=== PATIENT | female | born 1945 | race Caucasian/White ===

== ENCOUNTER → 2019-01-22 | Outpatient (CLI) | payer MEDICARE, BC ==
[~2019-01-22] MED LIST: ALEVE PO; COUMADIN 5MG5 MG/TAB PO; COUMADIN 77.5 MG/TAB PO; FOSAMAX 70MG TA70 MG PO; GLUCOSAMINE PO; LEXAPRO 10MG10 MG PO; LUMIGAN 2.5 ML2.5 M1 OP; Lovenox SQ; MULTI VITAMINS1 TAB; NORCO 325 MG-51 TAB PO; NORCO 325 MG-7.1 TAB PO; PERCOCET 325 MG1 TA2 PO; PREDNISONE10 MG PO; PRILOTC PO; PROMETHAZINE V473 M2 PO; SYNTHROID0.05 MG/TA PO; SYNTHROID0.075 MG/T PO; SYNTHROID0.1 MG/TAB PO; VALIUM 5MG T5 MG/TAB PO; VITAMIN C500 MG PO; VITAMIN D 1001000 IU PO
== END ==
LOC: MC.RAD 07:42
DX: Z12.31 Encounter for screening mammogram for malignant neoplasm of breast (principal)

== ENCOUNTER 2019-02-10 07:12 | Inpatient (IN) | payer MEDICARE, BC ==
[~2019-02-10] VITALS: Ht 165.1 cm; Wt 58.4 kg
[2019-02-10 08:44] LABS: BASO # 0.1 (0.0-0.2); BASO % 0.6 % (0.0-2.0); EOS # 0.2 (0.0-0.7); EOS % 1.5 % (0-4.0); GRAN # 7.7 (1.4-6.5); GRAN % 78.2 % (42.2-75.2); HEMATOCRIT 37.1 % (37.0-47.0); HEMOGLOBIN 12.2 g/dl (12.5-16.0); LYMPH # 1.2 (1.2-3.4); LYMPH % 11.8 % (20.0-51.0); MEAN CELL VOLUME 99 fl (80.0-100.0); MEAN CORPUSCULAR HEMOGLOBIN 32 pg (27.0-31.0); MEAN CORPUSCULAR HGB CONC 33 g/dl (33.0-37.0); MONO # 0.7 (0.1-0.6); MONO % 7.4 % (1.7-9.3); PLATELET COUNT 295 K/mm3 (130-400); RED BLOOD COUNT 3.76 M/mm3 (4.10-5.30); REDCELL DISTRIBUTION WIDTH-CV 13.4 % (11.5-14.5)
[2019-02-10 08:55] LABS: PROTHROMBIN TIME 11.2 SECONDS (9.7-12.8)
[2019-02-10 08:56] LABS: COLLECTION METHOD CLEAN CATCH
[2019-02-10 08:57] LABS: PARTIAL THROMBOPLASTIN TIME 18.2 SECONDS (26.0-37.0)
[2019-02-10 09:09] LABS: PH 8 (5-8); SQUAMOUS EPITHELIAL 0-2 /hpf; URINE APPEARANCE Clear; URINE BACTERIA None Seen /hpf; URINE BILIRUBIN Negative (NEGATIVE); URINE BLOOD Negative (NEGATIVE); URINE COLOR Yellow; URINE GLUCOSE Negative (NEGATIVE); URINE KETONE Negative (NEGATIVE); URINE LEUKOCYTE ESTERASE Negative (NEGATIVE); URINE NITRATE Negative (NEGATIVE); URINE PROTEIN(semi-quant) Negative (NEGATIVE); URINE RBC 0-2 /hpf; URINE UROBILINOGEN Negative (NEGATIVE)
[2019-02-10 09:10] LABS: ALBUMIN 4.2 gm/dL (3.5-5.0); BILIRUBIN,TOTAL 0.9 mg/dL (0.0-1.0); C-REACTIVE PROTEIN 5.9 mg/dL (0.0-0.9); CALCIUM 9.3 mg/dL (8.4-10.2); CREATININE, serum 0.77 (0.52-1.25); POTASSIUM 4.1 mmol/L (3.4-5.0); TOTAL PROTEIN 7.9 gm/dL (6.4-8.2)
[2019-02-10] MEDS ORDERED: VITAMIN D 1001000 IU PO (11:46)
[2019-02-10 11:50] VITALS: BP 106/43; PULSE 65; TEMP 98.3
[2019-02-10 11:54] VITALS: BP 106/43; PULSE 60; TEMP 98.3
[2019-02-10 16:21] VITALS: BP 131/56; PULSE 75; TEMP 99.4
[2019-02-10 20:36] VITALS: BP 104/50; PULSE 71; TEMP 98.3
[2019-02-10 23:08] VITALS: BP 105/58; PULSE 77; TEMP 99.3
[2019-02-11 03:34] VITALS: BP 109/50; PULSE 64; TEMP 98.9
[2019-02-11 07:57] LABS: ALBUMIN 3.7 gm/dL (3.5-5.0); BILIRUBIN,TOTAL 0.8 mg/dL (0.0-1.0); CALCIUM 8.7 mg/dL (8.4-10.2); CREATININE, serum 0.75 (0.52-1.25); POTASSIUM 3.9 mmol/L (3.4-5.0); TOTAL PROTEIN 6.9 gm/dL (6.4-8.2)
[2019-02-11 08:00] VITALS: BP 119/51; PULSE 66; TEMP 97.4
[2019-02-11 08:00] LABS: BASO % 0.5 % (0.0-2.0); EOS # 0.2 (0.0-0.7); EOS % 2.1 % (0-4.0); GRAN # 5.8 (1.4-6.5); GRAN % 71.8 % (42.2-75.2); HEMOGLOBIN 11.1 g/dl (12.5-16.0); LYMPH # 1.3 (1.2-3.4); LYMPH % 16.5 % (20.0-51.0); MEAN CELL VOLUME 99 fl (80.0-100.0); MEAN CORPUSCULAR HEMOGLOBIN 33 pg (27.0-31.0); MEAN CORPUSCULAR HGB CONC 33 g/dl (33.0-37.0); MEAN PLATELET VOLUME 10.2 fl (7.4-10.4); MONO # 0.7 (0.1-0.6); MONO % 8.9 % (1.7-9.3); PLATELET COUNT 293 K/mm3 (130-400); RED BLOOD COUNT 3.42 M/mm3 (4.10-5.30); REDCELL DISTRIBUTION WIDTH-CV 13.4 % (11.5-14.5)
[2019-02-11 08:01] LABS: HEMATOCRIT 33.7 % (37.0-47.0)
[2019-02-11 12:00] VITALS: BP 109/52; PULSE 62; TEMP 98.9
[2019-02-11 16:00] VITALS: BP 116/37; PULSE 70; TEMP 98.7
[2019-02-11 19:36] VITALS: BP 125/55; PULSE 66; TEMP 98.6
[2019-02-11 23:42] VITALS: BP 109/42; PULSE 57; TEMP 97.9
[2019-02-12 03:42] VITALS: BP 119/56; PULSE 50; TEMP 98.2
[2019-02-12 07:16] LABS: BASO # 0.1 (0.0-0.2); BASO % 1.1 % (0.0-2.0); EOS # 0.3 (0.0-0.7); EOS % 6.1 % (0-4.0); GRAN # 3.5 (1.4-6.5); GRAN % 63.2 % (42.2-75.2); HEMOGLOBIN 10.9 g/dl (12.5-16.0); LYMPH # 1.1 (1.2-3.4); LYMPH % 20.4 % (20.0-51.0); MEAN CELL VOLUME 101 fl (80.0-100.0); MEAN CORPUSCULAR HEMOGLOBIN 32 pg (27.0-31.0); MEAN CORPUSCULAR HGB CONC 32 g/dl (33.0-37.0); MEAN PLATELET VOLUME 10.2 fl (7.4-10.4); MONO # 0.5 (0.1-0.6); PLATELET COUNT 311 K/mm3 (130-400); RED BLOOD COUNT 3.37 M/mm3 (4.10-5.30); REDCELL DISTRIBUTION WIDTH-CV 13.2 % (11.5-14.5)
[2019-02-12 07:17] VITALS: BP 122/81; PULSE 61; TEMP 97.5
[2019-02-12 07:17] LABS: HEMATOCRIT 33.9 % (37.0-47.0)
[2019-02-12 07:20] LABS: ALBUMIN 3.5 gm/dL (3.5-5.0); BILIRUBIN,TOTAL 0.3 mg/dL (0.0-1.0); CALCIUM 8.8 mg/dL (8.4-10.2); CREATININE, serum 0.69 (0.52-1.25); POTASSIUM 3.7 mmol/L (3.4-5.0); TOTAL PROTEIN 6.7 gm/dL (6.4-8.2)
[2019-02-12] MEDS ORDERED: FLAGYL500 MG PO (12:05)
[2019-02-12] MEDS ORDERED: LEVAQUIN 750MG750 M1 PO (12:05)
[2019-02-12] MEDS ORDERED: ULTRAM 50MG TAB50 MG PO (12:06)
[2019-02-12 13:34] VITALS: BP 141/58; PULSE 68; TEMP 98
[2019-02-12 16:32] VITALS: BP 123/53; PULSE 54; TEMP 98.1
[2019-02-12 21:46] VITALS: BP 110/47; PULSE 60; TEMP 98.2
[2019-02-13 00:45] VITALS: BP 108/55; PULSE 67; TEMP 98
[2019-02-13 03:53] VITALS: BP 132/61; PULSE 59; TEMP 98.6
[2019-02-13 07:35] VITALS: BP 111/54; PULSE 60; TEMP 98.3
[2019-02-13 11:39] VITALS: BP 111/55; PULSE 55; TEMP 98.4
== END 2019-02-13 14:59 | disposition home or self-care (01) | DRG 392 ==
LOC: COL.ER 07:12 → SURG 10:19
PROVIDERS: Emergency Medicine; ADMIT Surgery
DX: K57.32 Diverticulitis of large intestine without perforation or abscess without bleeding (principal); Z87.01 Personal history of pneumonia (recurrent); Z90.710 Acquired absence of both cervix and uterus; Z87.891 Personal history of nicotine dependence
CPT/HCPCS: J1956; J7030; J7120; Q9967

== ENCOUNTER 2019-04-21 05:36 | Emergency (ER) | payer MEDICARE, BC ==
[~2019-04-21] VITALS: Ht 165.1 cm; Wt 56.8 kg
[~2019-04-21 05:36] MED LIST changes: +FLAGYL500 MG PO; +LEVAQUIN 750MG750 M1 PO; +ULTRAM 50MG TAB50 MG PO
[2019-04-21] MEDS ORDERED: ZOCOR 10MG10 MG PO (06:13)
[2019-04-21] MEDS ORDERED: PROBIOTICA100 Milli1 PO (06:14)
[2019-04-21 06:16] LABS: HEMOGLOBIN 12.4 g/dl (12.5-16.0); MEAN CELL VOLUME 95 fl (80.0-100.0); MEAN CORPUSCULAR HEMOGLOBIN 32 pg (27.0-31.0); MEAN CORPUSCULAR HGB CONC 34 g/dl (33.0-37.0); PLATELET COUNT 221 K/mm3 (130-400); RED BLOOD COUNT 3.88 M/mm3 (4.10-5.30)
[2019-04-21 06:23] LABS: ALANINE AMINOTRANSFERASE 21 U/L (9-52); ALBUMIN 3.8 gm/dL (3.5-5.0); ALKALINE PHOSPHATASE 48 U/L (50-136); ANION GAP 11 mmol/L (7-16); AST,SGOT 32 U/L (15-37); BILIRUBIN,TOTAL 0.3 mg/dL (0.0-1.0); BLOOD UREA NITROGEN 12 mg/dL (7-17); C-REACTIVE PROTEIN 0.9 mg/dL (0.0-0.9); CALCIUM 8.7 mg/dL (8.4-10.2); CARBON DIOXIDE 22 mmol/L (22-30); CHLORIDE 108 mmol/L (98-107); CREATININE, serum 0.73 (0.52-1.25); GLUCOSE 102 mg/dL (74-106); POTASSIUM 3.3 mmol/L (3.4-5.0); SODIUM 141 mmol/L (137-145); TOTAL PROTEIN 6.9 gm/dL (6.4-8.2)
[2019-04-21 06:41] LABS: BAND 2 % (0-10); EOSINOPHIL 4 % (0-4); LYMPHOCYTE 73 % (20.0-51.0); METAMYELOCYTE 2 % (0-0); NEUTROPHILS 15 % (42.0-75.2)
[2019-04-21 07:02] LABS: TROPONIN-I < 0.012 ng/mL (0.000-0.035)
[2019-04-21] MEDS ORDERED: AMOXICILLIN 8751 TAB PO (08:25)
[2019-04-21 08:59] VITALS: BP 128/64; PULSE 52; TEMP 98.1
== END 2019-04-21 08:59 | disposition home or self-care (01) ==
LOC: COL.ER 05:36
PROVIDERS: Emergency Medicine
DX: T36.8X5A Adverse effect of other systemic antibiotics, initial encounter (principal); K57.32 Diverticulitis of large intestine without perforation or abscess without bleeding; E03.9 Hypothyroidism, unspecified; E78.5 Hyperlipidemia, unspecified; Z88.0 Allergy status to penicillin; Z88.8 Allergy status to other drugs, medicaments and biological substances; Z87.891 Personal history of nicotine dependence; Z90.710 Acquired absence of both cervix and uterus
CPT/HCPCS: J0780; Q9967